=== PATIENT | female | born 1990 | race Two or more races ===

== ENCOUNTER → 2021-10-20 | Outpatient (REF) | payer OTHER | LOC: M LAB REF 17:40 | PROVIDERS: ATTEND Nurse Practitioner Adult Health | DX: J02.9 Acute pharyngitis, unspecified (principal) ==

== ENCOUNTER 2022-01-15 20:05 | Emergency (ER) | payer OTHER ==
[~2022-01-15] VITALS: Ht 172.7 cm; Wt 97.3 kg
[2022-01-15 20:07] VITALS: BP 149/89
[2022-01-15] MEDS ORDERED: COLA100C5 PO (20:13)
[2022-01-15] MEDS ORDERED: PREN1TAB11 PO (20:13)
[2022-01-15] MEDS ORDERED: VITA500C24 PO (20:13)
[2022-01-15] MEDS ORDERED: OXYC-517 PO (20:14)
== END 2022-01-15 23:42 | disposition left against medical advice (07) ==
LOC: M ED 20:05
DX: Z53.29 Procedure and treatment not carried out because of patient's decision for other reasons (principal)